=== PATIENT | female | born 1985 | race Caucasian/White ===

== ENCOUNTER 2025-07-05 12:57 | Outpatient (CLI) | payer OTHER | END 2025-07-05 14:18 | disposition home or self-care (01) | LOC: NST 12:57 | PROVIDERS: ATTEND Obstetrics & Gynecology Maternal & Fetal Medicine | DX: Z34.83 Encounter for supervision of other normal pregnancy, third trimester (principal) ==

== ENCOUNTER 2025-07-12 07:49 | Outpatient (CLI) | payer OTHER | END 2025-07-12 09:00 | disposition home or self-care (01) | LOC: NST 07:49 | PROVIDERS: ATTEND Obstetrics & Gynecology Maternal & Fetal Medicine | DX: Z34.83 Encounter for supervision of other normal pregnancy, third trimester (principal) ==

== ENCOUNTER 2025-07-26 08:11 | Outpatient (CLI) | payer OTHER | END 2025-07-26 09:39 | disposition home or self-care (01) | LOC: NST 08:11 | PROVIDERS: ATTEND Obstetrics & Gynecology Maternal & Fetal Medicine | DX: Z34.83 Encounter for supervision of other normal pregnancy, third trimester (principal) ==

== ENCOUNTER 2025-08-09 10:12 | Outpatient (CLI) | payer OTHER | END 2025-08-09 11:04 | disposition home or self-care (01) | LOC: NST 10:12 | PROVIDERS: ATTEND Obstetrics & Gynecology Maternal & Fetal Medicine | DX: Z34.83 Encounter for supervision of other normal pregnancy, third trimester (principal) ==

== ENCOUNTER 2025-08-16 11:09 | Outpatient (CLI) | payer OTHER | END 2025-08-16 11:49 | disposition home or self-care (01) | LOC: NST 11:09 | PROVIDERS: ATTEND Obstetrics & Gynecology Maternal & Fetal Medicine | DX: Z34.83 Encounter for supervision of other normal pregnancy, third trimester (principal) ==

== ENCOUNTER 2025-08-18 09:37 | Outpatient (CLI) | payer OTHER | END 2025-08-18 13:25 | disposition home or self-care (01) | LOC: NST 09:37 | PROVIDERS: ATTEND Obstetrics & Gynecology Maternal & Fetal Medicine | DX: Z34.83 Encounter for supervision of other normal pregnancy, third trimester (principal) ==

== ENCOUNTER → 2025-08-22 | Outpatient (CLI) | payer OTHER | END | disposition home or self-care (01) | LOC: NST 10:31 | PROVIDERS: ATTEND Obstetrics & Gynecology Maternal & Fetal Medicine | DX: Z34.83 Encounter for supervision of other normal pregnancy, third trimester (principal) ==